=== PATIENT | female | born 1985 | race Caucasian/White ===

== ENCOUNTER → 2016-07-30 23:20 | Observation (INO) ==
[2016-07-30 21:57] VITALS: BP 152/67
[2016-07-30 22:27] LABS: Basophils % 0.1 %; Eosinophils # 0.1 K/mcL (0.0-0.6); Eosinophils % 1.1 %; Hematocrit 38.5 % (35.3-44.9); Hemoglobin 13.1 g/dL (11.5-15.4); Immature Granulocytes % 0.5 % (0-4); Lymphocytes # 2.2 K/mcL (0.6-4.6); Lymphocytes % 23.6 %; Mean Corpuscular Hemoglobin 32.2 pg (28.0-33.3); Mean Corpuscular Volume 94.6 fL (83.0-100.0); Mean Platelet Volume 9.9 fL (9.4-12.4); Monocytes # 0.7 K/mcL (0.0-1.3); Monocytes % 7.9 %; Neutrophils # 6.1 K/mcL (1.6-8.9); Platelet Count 250 K/mcL (140-400); Red Blood Count 4.07 M/mcL (3.82-4.97); Red Cell Distribution Width 13.4 % (11.5-14.5); Segmented Neutrophils % 66.8 %
[2016-07-30 22:29] LABS: Bilirubin,Urine Negative (Negative); Blood,Urine Negative (Negative); Clarity,Urine Cloudy (Clear); Color,Urine Yellow (Yellow); Glucose,Urine (UA) Normal (Normal); Ketones,Urine Negative (Negative); Leukocyte Esterase,Urine Small (Negative); Nitrite,Urine Negative (Negative); Protein,Urine Negative (Neg-Trace); Specific Gravity,Urine 1.019 (1.010-1.025); Urobilinogen,Urine Normal (Normal)
[2016-07-30 22:31] LABS: Bacteria,Urine Moderate per hpf (None-Few); Hyaline Casts,Urine None Seen per lpf (None-Few); RBC,Urine 0-3 per hpf (0-3); Squamous Epithelial Cell,Urine Many per lpf (None-Few)
[2016-07-30 22:39] LABS: Sperm,Urine Present
[2016-07-30 22:42] LABS: Alanine Aminotransferase 12 Units/L (0-55); Aspartate Amino Transferase 15 Units/L (5-34); BUN/Creatinine Ratio 11 (6-26); Blood Urea Nitrogen 7 mg/dL (7-20); Lactate Dehydrogenase 153 Units/L (159-327); Uric Acid 4.1 mg/dL (2.6-6.0); eGFR For African Americans > 60 (> 60); eGFR For Non-African Americans > 60 (> 60)
--- NOTE | 2016-07-30 23:11 | OB/GYN Progress Note ---
Date of Encounter: 07/30/16 Time of Encounter: 23:09 - Assessment and Plan (1) 35 weeks gestation of Current Visit: Yes Status: Acute (2) Swelling Current Visit: Yes Status: Acute Pt with normal BPs and PIH labs. Her GLEZ and MET have resolved. Subjective - Subjective Principal diagnosis: swelling Interval history: Pt presents with 2 day h/o swelling and earlier had mid epigastric tender. Sporadaic headache. +GFM, no vb or LOF Objective - Vital Signs Vital Signs: Vital Signs Temp Pulse Resp BP 07/30/16 21:39 97.9 F 89 14 152/67 Intake and Output 07/30/16 07/30/16 07/30/16 07:59 15:59 23:59 Output Total 50 / 50 Balance -50 / -50 Output: Urine 50 / 50 Other: Weight 139.2 kg Patient Weight 07/30/16 23:59 Weight 139.2 kg - Exam FHR: category 1 Auscultation: bilateral: normal Abdomen: Present: normal appearance Uterus: Present: normal - Labs Labs: Abnormal lab results Lactate Dehydrogenase 153 Units/L (159-327) L 07/30/16 22:19 Urine Clarity Cloudy (Clear) A 07/30/16 22:00 Ur Leukocyte Esterase Small (Negative) H 07/30/16 22:00 Urine Microscopic WBC 5-15 per hpf (0-3) H 07/30/16 22:00 Ur Squamous Epith Cells Many per lpf (None-Few) H 07/30/16 22:00 Urine Bacteria Moderate per hpf (None-Few) H 07/30/16 22:00 Ur Culture Indicated? YES (NO) A 07/30/16 22:00
== END | disposition home or self-care (01) ==
LOC: 1NENULAB
PROVIDERS: ADMIT Obstetrics & Gynecology; ATTEND Obstetrics & Gynecology

== ENCOUNTER 2016-08-26 12:47 | Inpatient (IN) ==
[~2016-08-26 12:47] MED LIST: *HR* FentaNYL (PF) 100 MCG/2 ML VIAL IVP PRN; *HR* Nalbuphine 20 MG/ML AMPUL IVP PRN; Famotidine 20 MG/2 ML VIAL IVP PRN; Naloxone 0.4 MG/ML INJ IVP PRN; Ondansetron 4 MG/2 ML VIAL IVP PRN; miSOPROStol 100 MCG TABLET PO ONE
[2016-08-26 13:04] LABS: Basophils % 0.2 %; Eosinophils # 0.1 K/mcL (0.0-0.6); Eosinophils % 0.6 %; Hematocrit 39.5 % (35.3-44.9); Hemoglobin 13.6 g/dL (11.5-15.4); Immature Granulocytes % 0.6 % (0-4); Lymphocytes # 2.2 K/mcL (0.6-4.6); Lymphocytes % 19.7 %; Mean Corpuscular HGB Conc 34.4 g/dL (31.6-35.5); Mean Corpuscular Hemoglobin 32.1 pg (28.0-33.3); Mean Corpuscular Volume 93.2 fL (83.0-100.0); Mean Platelet Volume 10.3 fL (9.4-12.4); Monocytes # 0.8 K/mcL (0.0-1.3); Monocytes % 7.1 %; Neutrophils # 7.9 K/mcL (1.6-8.9); Platelet Count 261 K/mcL (140-400); Red Blood Count 4.24 M/mcL (3.82-4.97); Segmented Neutrophils % 71.8 %
[2016-08-26] MEDS: Ringers Solution, Lactated 1,000 ML IVC SCH ×3 (14:27→17:42)
[2016-08-26] MEDS ORDERED: *HR* FentaNYL (PF) 100 MCG/2 ML VIAL EP ONE (14:39)
[2016-08-26] MEDS ORDERED: Bupivacaine-MPF 0.25% 10 ML VIAL EP ONE (14:39)
[2016-08-26] MEDS ORDERED: Epidural Premix (fent/bupiv) 110 ML EP SCH (14:45)
--- NOTE | 2016-08-26 14:49 | Anesthesia Evaluation PreOp ---
Date of Encounter: 08/26/16 Time of Encounter: 14:35 - Past History Planned Operation: labor epidural Cardiac History: Denies any Significant Hx Pulmonary History: Denies Any Significant HX, Former smoker (quit 3 months ago, smoked for several years.) BOG WORKER History: Denies Any Significant HX Other Medical History: Other (morbid obesity, BMI 50.) Anesthesia History: No Prior Anesthetic Complications, Past Anesthesia (wisdom teeth extracted.) : Yes Alcohol Use: none Drug use: none Medications and Allergies No Known Home Drugs 07/30/16 [History] Allergies No Known Allergies Allergy (Verified 08/26/16 13:09) - Meds/Allergy Pre-op Review Medications Reviewed: Yes Allergies Reviewed: No Beta Blockers on Current Med List: No Anesthesia Results - Labs 08/26/16 12:35 Anesthesia Exam VSS Height: 5'7" Weight: 144 kg NPO (# of Hours): >8 Pain Scale: 7 Pain Scale Used: Numeric (1 - 10) - HEENT Pupil (Motor): Pupils equal, EOMI Mallampati: II Teeth: Poor dentition (upper gumline decay.) Oral Opening: Greater than 3 - BOG WORKER LOC: Oriented BOG WORKER Motor: Normal RUE, Normal LUE, Normal RLE, Normal LLE, Normal Face BOG WORKER Sensory: Normal: RUE, LUE, RLE, LLE, Face - Cardiac Rhythm: Regular - Pulmonary Breath Sounds: bilateral Clear Respiratory Effort: Symmetrical Anesthesia Assess/Plan ASA Score: 3 Modified Grace Scale for Level of Consciousness: Cooperative, oriented, and tranquil Anesthetic Plan: Regional Monitoring Plan: Standard Monitors
[2016-08-26] MEDS ORDERED: *HR* FentaNYL (PF) 100 MCG/2 ML VIAL ONE (15:04)
[2016-08-26] MEDS ORDERED: Epidural Premix (fent/bupiv) 110 ML EP ONE ×2 (15:04→22:15)
[2016-08-26] MEDS ORDERED: Bupivacaine-MPF 0.25% 10 ML VIAL ONE (15:05)
--- NOTE | 2016-08-26 16:04 | Anesthesia Procedures ---
Date of Encounter: 08/26/16 Time of Encounter: 15:13 Procedures: Anesthesia - Epidural/Spinal Patient ID/Chart reviewed: Yes Patient examined: Yes OB Eval: Gestational age: 39 OB Eval: : 4 OB Eval: Hx Para: 2 OB Eval: Dilated at (cm): 5 OB Eval: Contractions: Non-stressed pattern Consent Obtained: Yes Supplemental Oxygen: None/Room Air Site Prep: Aseptic Technique, Sterile prep and drape, Povidone-Iodine 1% Patient position: upright Local Anesthetic: Lidocaine 1% Amount of Local Anesthetic used: 5 Touhy Needle Gauge: 19 Touhy Needle Depth (cm): 6 Catheter Depth at Skin (cm): 19 Test Dose (1.5% Lido + Epi): Volume given (mls): 3 Test Dose Result: Negative Loading Dose: 0.25% Marcaine (mls): 8 Loading Dose: Fentanyl (mcg): 100 Loading Dose Administered: Thru Catheter Infusion Med: 0.125% Bupivacaine w/ 2 mcg/ml Fentanyl Infusion Rate (mls/hr): [address]: Tegaderm, Tape Interspace Used: L2-L3 Loss of Resistance (TRINITY): Yes Blood: No CSF: No Paresthesia: No Vitals + FHT's: 3 Vital Signs Time 1515 1545 1550 1555 1600 BP 138/65 117/68 122/71 135/56 106/53 Pulse 106 97 111 109 111 FHTs 130 130 130 130 130
[2016-08-26] MEDS ORDERED: EPHEDrine 50 MG/ML VIAL ONE (16:11)
[2016-08-26] MEDS ORDERED: Water for inj. (sterile) 10 ML IV ONE (16:11)
--- NOTE | 2016-08-26 16:33 | OB/GYN History & Physical ---
Date of Encounter: 08/26/16 Time of Encounter: 16:21 Assessment and Plan (1) 39 weeks gestation of Current visit: Yes Status: Acute (2) SROM (spontaneous rupture of membranes) Current visit: Yes Status: Acute Admit to labor and delivery Epidural as desired Anticipate History of Present Illness Chief complaint: leaking of fluid HPI: Ms. Mcfadden is a 31 year old female 39+2 here with complaints of SROM. Pt reports good movement. Denies vaginal bleeding or leaking of fluid. 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 Past Med Surg Social Fam HX - Past Medical History Medical history: kidney stones Psychiatric history: depression - Past Surgical History Surgical History: non-contributory, other - Social History Smoking Status: Former smoker Smokeless Tobacco Status: No Alcohol use: none Drug use: none - Family History Father Adopted: No Living Status: Still Living Hx Family Cardiac Disorders: Yes (htn) Hx Family Respiratory Disorders: No Hx Family Cancer: No Hx Family GI Disorders: No Hx Family Endocrine Disorder: No Hx Family Neuromuscular Disorders: No Hx Family Neurologic Disorders: No Hx Family HEENT Disorders: No Hx Family Autoimmune Disorders: No Obstetrical History - Pregnancies : 4 Para: 2 Term: 2 : 0 Ab's: 1 Livin Medications and Allergies No Known Home Drugs 07/30/16 [History] Allergies No Known Allergies Allergy (Verified 08/26/16 13:09) Exam - Constitutional Constitutional: well developed, well nourished, no acute distress, obese - Lungs Respiratory exam: CTAB - Cardiovascular Cardiovascular exam: RRR, +S1, +S2 - Abdomen Abdomen: Present: bowel sounds normal, gravid, non tender - Vulva Vulva: bilateral: normal - Vagina Vagina: Present: normal moisture - Cervix Dilation: 5 Effacement: 80 Station: -2 - Uterus Uterus exam: Present: normal size, normal contour - Anus/Rectum Anus/Rectum: Present: normal perianal skin Results Result Diagrams: 08/26/16 12:35 All other labs normal. - VTE Reasons for not Prescribing Prophylaxis: Treatment not Indicated - Low risk for VTE
[2016-08-26] MEDS ORDERED: Oxytocin 20 units/ LR 1000 mL 20 UNIT/1,000 ML BAG IVC SCH ×2 (17:00→23:45)
--- NOTE | 2016-08-26 19:51 | OB Labor Progress Note ---
Date of Encounter: 08/26/16 Time of Encounter: 19:16 Labor Progress Note - Subjective Subjective: patient doing well - Vital Signs Vital Signs: VSS - Cervix Cervix: ant lip - Heart Tones Heart Tones: 145/mod steven/+accels, non reccurent steven decels - Plan Plan: anticipate
[2016-08-26] MEDS ORDERED: Ibuprofen 600 MG TABLET PO PRN (23:38)
[2016-08-26] MEDS ORDERED: Measles/Mumps/Rubella Vacc 0.5 ML VIAL SQ PRN (23:38)
--- NOTE | 2016-08-26 23:38 | OB/GYN Procedure Note ---
Delivery - Delivery Date: 08/26/16 Provider: Patience Pascual Intrapartum events: none Delivery induction: none Delivery augmentation: rupture of membranes Delivery monitor: external FHT Anesthesia: none Estimated Blood Loss: 250 - Repair Episiotomy: none Laceration Description: Perineal - 1st Degree - Complications Delivery complications: none - Disposition Mom disposition: stable in LDR [place] disposition: stable in LDR - Comments Comments: 31 y/o @ 39+2 weeks delivered a viable male @ 2227hrs. Infant weighed 4060g, 8lbs 15oz, APGARs 9/10. Placenta was delivered @ 2234hrs. 3VC, cord clamped and infant handed to nurse. 1st degree laceration repaired with 3- 0 vicryl. EBL 250cc. Mother and doing well.
[2016-08-27] MEDS: Acetaminophen 325 MG TABLET PO PRN ×2 (06:51→16:22)
[2016-08-27 07:25] LABS: Basophils % 0.1 %; Eosinophils # 0.1 K/mcL (0.0-0.6); Eosinophils % 0.4 %; Hematocrit 36.8 % (35.3-44.9); Hemoglobin 12.7 g/dL (11.5-15.4); Immature Granulocytes % 0.4 % (0-4); Lymphocytes # 2.2 K/mcL (0.6-4.6); Lymphocytes % 17.9 %; Mean Corpuscular HGB Conc 34.5 g/dL (31.6-35.5); Mean Corpuscular Hemoglobin 32.6 pg (28.0-33.3); Mean Corpuscular Volume 94.6 fL (83.0-100.0); Mean Platelet Volume 10.8 fL (9.4-12.4); Monocytes % 7.8 %; Platelet Count 246 K/mcL (140-400); Red Blood Count 3.89 M/mcL (3.82-4.97); Red Cell Distribution Width 13.1 % (11.5-14.5); Segmented Neutrophils % 73.4 %
[2016-08-27] MEDS: Prenatal Vit/FA 1 EACH TABLET PO SCH (08:41)
--- NOTE | 2016-08-27 09:44 | OB/GYN Progress Note ---
Date of Encounter: 08/27/16 Time of Encounter: 09:42 - Assessment and Plan (1) Status post vaginal delivery Current Visit: Yes Status: Acute Patient meeting milestones. Anticipate discharge on 08/28. Continue routine care Subjective - Subjective Principal diagnosis: PPD1 Interval history: The patient is status post a vaginal delivery. Her is doing well. She is reporting some back soreness and is starting to ambulate. Patient reports: appetite normal, voiding normally, pain well controlled, ambulating normally [place]rey: doing well, nursing well Objective - Latest Vital Signs Latest vital signs: Vital Signs Temp Pulse Resp BP Pulse Ox 08/27/16 07:45 97.9 F 92 18 112/70 97 08/27/16 03:30 99.6 F 96 20 124/84 98 08/27/16 02:15 98.5 F 88 16 124/78 98 08/27/16 01:15 98.5 F 99 20 116/80 98 Intake and Output 08/26/16 08/27/16 08/27/16 23:59 07:59 15:59 Intake Total 1000 / 1000 900 / 900 Output Total 2000 / 2000 Balance 1000 / 1000 -1100 / -1100 Intake: IV Fluids 1000 / 1000 Lactated Ringers 1,000 ML 1000 / 1000 @ 125 mls/hr IVC .Q8H [facility] Rx#:[id number] Oral 600 / 600 Other 300 / 300 Output: Urine 2000 / 2000 Other: Weight 141 kg Patient Weight 08/27/16 23:59 Weight 141 kg - Exam Lungs: bilateral: normal Extremities: Present: edema. Absent: tenderness Abdomen: Present: soft. Absent: distention, tenderness Uterus: Present: normal, firm Uterus Position: 1 Finger Below Umbilicus, Midline - Labs Labs: Laboratory Results - last 24 hr 08/26/16 08/27/16 12:35 06:40 WBC 11.1 12.2 H RBC 4.24 3.89 Hgb 13.6 12.7 Hct 39.5 36.8 MCV 93.2 94.6 MCH 32.1 32.6 MCHC 34.4 34.5 RDW 13.0 13.1 Plt Count 261 246 MPV 10.3 10.8 Immature Gran % 0.6 0.4 Seg Neutrophils % 71.8 73.4 Lymphocytes % 19.7 17.9 Monocytes % 7.1 7.8 Eosinophils % 0.6 0.4 Basophils % 0.2 0.1 Neutrophils # 7.9 9.0 H Lymphocytes # 2.2 2.2 Monocytes # 0.8 1.0 Eosinophils # 0.1 0.1 Basophils # 0.0 0.0 - Allied health notes Allied health notes reviewed: nursing
[2016-08-28] MEDS: Acetaminophen 325 MG TABLET PO PRN (06:15)
[2016-08-28 08:02] VITALS: BP 106/69
--- NOTE | 2016-08-28 08:07 | Discharge Summary ---
Date of Encounter: 08/28/16 Time of Encounter: 08:03 - Discharge Diagnosis (1) Breast feeding status of mother Priority: Secondary Status: Acute Comments: continue support prn (2) Status post vaginal delivery Priority: Primary Status: Acute Comments: Continue routine routine care discharge home today - Discharge Medications Prescriptions: Breast Pump [BREAST PUMP] 1 each .ROUTE AD #1 each Home Medications: Breast Pump [BREAST PUMP] 1 each .ROUTE AD #1 each 08/28/16 [Rx] Allergies/Adverse Reactions: Allergies No Known Allergies Allergy (Verified 08/26/16 13:09) Data Procedures and tests throughout hospitalization: Laboratory Tests 08/26/16 08/27/16 12:35 06:40 WBC 11.1 12.2 H RBC 4.24 3.89 Hgb 13.6 12.7 Hct 39.5 36.8 MCV 93.2 94.6 MCH 32.1 32.6 MCHC 34.4 34.5 RDW 13.0 13.1 Plt Count 261 246 MPV 10.3 10.8 Immature Gran % 0.6 0.4 Seg Neutrophils % 71.8 73.4 Lymphocytes % 19.7 17.9 Monocytes % 7.1 7.8 Eosinophils % 0.6 0.4 Basophils % 0.2 0.1 Neutrophils # 7.9 9.0 H Lymphocytes # 2.2 2.2 Monocytes # 0.8 1.0 Eosinophils # 0.1 0.1 Basophils # 0.0 0.0 Date of admission: 08/26/16 12:47 Consults: 08/26/16 23:39 Consult to [employer]inner [CONS] Routine Comment: Vaginal delivery, consult needed Discharging clinician: Kellen Haley Anticipated date of discharge: 08/28/16 - Patient Status Disposition: Home, Self-Care Condition: Good Functional capacity at discharge: independent ambulation Overall status at discharge: patient is back to baseline - Discharge Instructions Follow Up With: Patience Pascual MD [Partnered Physician] - - Diet and Activity Activity: increase activity as tolerated Diet: regular diet Hospital Course Delivery: Episiotomy: none Other procedures: none complications: none Discharge diagnosis: IUP at term delivered baby: male (breast feeding) Time Attestation: Total time spent providing and/or coordinating discharge services: Time Spent: Less than 30 minutes Exam - Constitutional Vitals: Temp Pulse Resp BP Pulse Ox 97.6 F 86 12 106/69 97 08/28/16 07:45 08/28/16 07:45 08/28/16 07:45 08/28/16 07:45 08/28/16 07:45 General appearance IM: A&O X 3, pleasant, obese, answers questions appropriately - Respiratory Respiratory exam: Present: CTAB - Cardiovascular Cardiovascular exam IM: Present: RRR, +S1, +S2 - GI/Abdominal GI/Abdominal exam IM: normal bowel sounds - Uterine Tone: Firm Uterus Position: 1 Finger Below Umbilicus, Midline - Extremities Exam Extremities exam IM: Present: full ROM, normal capillary refill, normal inspection - Neurological Exam Neurological exam: alert, oriented X3, reflexes normal
[2016-08-28] MEDS: Prenatal Vit/FA 1 EACH TABLET PO SCH (11:43)
== END 2016-08-28 13:39 | disposition home or self-care (01) | DRG 560 ==
LOC: 1NENULAB → 1NENUOBS 08-27 00:44
PROVIDERS: ADMIT Student in an Organized Health Care Education/Training Program; ATTEND Student in an Organized Health Care Education/Training Program

== ENCOUNTER 2019-06-10 13:27 | Observation (INO) ==
[2019-06-10 12:03] LABS: Bilirubin,Urine Negative (Negative); Blood,Urine Negative (Negative); Clarity,Urine Cloudy (Clear); Color,Urine Yellow (Yellow); Glucose,Urine (UA) Normal (Normal); Ketones,Urine 15 mg/dL (Negative); Leukocyte Esterase,Urine Negative (Negative); Nitrite,Urine Negative (Negative); PH,Urine 6.5 pH Units (5.0-8.0); Protein,Urine Negative (Neg-Trace); Specific Gravity,Urine 1.018 (1.010-1.025); Urobilinogen,Urine Normal (Normal)
[2019-06-10 12:05] LABS: Hyaline Casts,Urine None Seen per lpf (None-Few); RBC,Urine 0-3 per hpf (0-3)
[2019-06-10 12:06] LABS: Basophils % 0.1 %; Eosinophils # 0.1 K/mcL (0.0-0.6); Eosinophils % 0.9 %; Hematocrit 40.2 % (35.3-44.9); Hemoglobin 13.5 g/dL (11.5-15.4); Immature Granulocytes % 0.5 % (0-4); Lymphocytes # 1.8 K/mcL (0.6-4.6); Mean Corpuscular HGB Conc 33.6 g/dL (31.6-35.5); Mean Corpuscular Hemoglobin 31.3 pg (28.0-33.3); Mean Corpuscular Volume 93.1 fL (83.0-100.0); Mean Platelet Volume 9.8 fL (9.4-12.4); Monocytes # 0.6 K/mcL (0.0-1.3); Monocytes % 7.4 %; Neutrophils # 5.6 K/mcL (1.6-8.9); Platelet Count 278 K/mcL (140-400); Red Blood Count 4.32 M/mcL (3.82-4.97); Segmented Neutrophils % 69.1 %; White Blood Count 8.1 K/mcL (4.3-11.1)
[2019-06-10 12:15] LABS: Squamous Epithelial Cell,Urine Moderate per lpf (None-Few)
[2019-06-10 12:16] LABS: Bacteria,Urine Many per hpf (None-Few)
[2019-06-10 12:18] LABS: Protein/Creatinine Ratio,Urine 0.3 mg/mg (0.00-0.20)
[2019-06-10 12:30] LABS: Alanine Aminotransferase 13 Units/L (7-52); Aspartate Amino Transferase 13 Units/L (13-39); BUN/Creatinine Ratio 18 (6-26); Blood Urea Nitrogen 7 mg/dL (6-20); Lactate Dehydrogenase 130 Units/L (140-271); Uric Acid 4.4 mg/dL (2.3-7.6); eGFR For African Americans > 60 (> 60); eGFR For Non-African Americans > 60 (> 60)
== END 2019-06-10 17:05 | disposition home health service (06) ==
LOC: 1NENULAB
PROVIDERS: ADMIT Obstetrics & Gynecology; ATTEND Obstetrics & Gynecology

== ENCOUNTER 2019-07-07 23:11 | Inpatient (IN) ==
[2019-07-07 20:55] LABS: Basophils % 0.1 %; Eosinophils # 0.2 K/mcL (0.0-0.6); Eosinophils % 2.1 %; Hematocrit 42.4 % (35.3-44.9); Hemoglobin 14.2 g/dL (11.5-15.4); Immature Granulocytes % 0.6 % (0-4); Lymphocytes # 2.1 K/mcL (0.6-4.6); Lymphocytes % 21.2 %; Mean Corpuscular HGB Conc 33.5 g/dL (31.6-35.5); Mean Corpuscular Hemoglobin 30.7 pg (28.0-33.3); Mean Corpuscular Volume 91.6 fL (83.0-100.0); Mean Platelet Volume 10.3 fL (9.4-12.4); Monocytes # 0.7 K/mcL (0.0-1.3); Monocytes % 7.2 %; Neutrophils # 6.7 K/mcL (1.6-8.9); Platelet Count 303 K/mcL (140-400); Red Blood Count 4.63 M/mcL (3.82-4.97); Red Cell Distribution Width 12.6 % (11.5-14.5); Segmented Neutrophils % 68.8 %; White Blood Count 9.7 K/mcL (4.3-11.1)
[2019-07-07 21:03] LABS: Amphetamine Screen,Urine Negative ng/mL (Cutoff=1000); Barbiturate Screen,Urine Negative ng/mL (Cutoff=200); Benzodiazepines Screen,Urine Negative ng/mL (Cutoff=200); Cannabinoid Screen,Urine Negative ng/mL (Cutoff = 50); Cocaine Screen,Urine Negative ng/mL (Cutoff= 300); Opiate Screen,Urine Negative ng/mL (Cutoff=300); Phencyclidine Screen,Urine Negative ng/mL (Cutoff=25)
[~2019-07-07 23:11] MED LIST changes: -*HR* Nalbuphine 20 MG/ML AMPUL IVP PRN; +Azithromycin 500 MG in 0.9 % Sodium Chloride 250 ML IVPB ONE; +EPHEDrine 50 MG/ML VIAL IVP PRN; +Epidural Premix (fent/bupiv) 110 ML EP ONE; +Epidural Premix (fent/bupiv) 110 ML EP SCH; +Lidocaine -MPF 1% 2 ML VIAL ONE; +Lidocaine 1% 20 ML MDV INFILT PRN; +Metoclopramide 10 MG/2 ML VIAL IVP PRN; +Ringers Solution, Lactated 1,000 ML IVC SCH; +Ringers Solution, Lactated 1,000 ML ONE; -miSOPROStol 100 MCG TABLET PO ONE
[2019-07-07] MEDS ORDERED: Oxytocin 20 units/ LR 1000 mL 20 UNIT/1,000 ML BAG IVC ONE (23:51)
[2019-07-08] MEDS ORDERED: Oxytocin 20 units/ LR 1000 mL 20 UNIT/1,000 ML BAG IVC SCH ×2 (00:15→08:14)
[2019-07-08 03:26] LABS: Protein/Creatinine Ratio,Urine 0.7 mg/mg (0.00-0.20)
[2019-07-08 03:34] LABS: Alanine Aminotransferase 22 Units/L (7-52); Aspartate Amino Transferase 18 Units/L (13-39); BUN/Creatinine Ratio 22 (6-26); Blood Urea Nitrogen 11 mg/dL (6-20); Lactate Dehydrogenase 183 Units/L (140-271); Uric Acid 4.7 mg/dL (2.3-7.6); eGFR For African Americans > 60 (> 60); eGFR For Non-African Americans > 60 (> 60)
[2019-07-08] MEDS ORDERED: Lanolin 7 G OINT...G. TP PRN (08:14)
[2019-07-08] MEDS ORDERED: Benzocaine/Menthol 56 GM AEROSOL SPRAY TP PRN (08:14)
[2019-07-08] MEDS ORDERED: Acetaminophen 325 MG TABLET PO PRN (08:14)
[2019-07-08] MEDS: Prenatal Vit/FA 1 EACH TABLET PO SCH (09:09)
[2019-07-08] MEDS: Ibuprofen 600 MG TABLET PO PRN (09:09)
[2019-07-08] MEDS: Aspirin Enteric Coated 81 MG Tablet PO SCH (09:10)
[2019-07-09] MEDS: Ibuprofen 600 MG TABLET PO PRN (04:23)
[2019-07-09 06:08] LABS: Basophils % 0.2 %; Eosinophils # 0.3 K/mcL (0.0-0.6); Eosinophils % 3.2 %; Hematocrit 36.8 % (35.3-44.9); Immature Granulocytes % 0.6 % (0-4); Lymphocytes # 2.8 K/mcL (0.6-4.6); Lymphocytes % 32.9 %; Mean Corpuscular HGB Conc 32.9 g/dL (31.6-35.5); Mean Corpuscular Hemoglobin 30.8 pg (28.0-33.3); Mean Corpuscular Volume 93.6 fL (83.0-100.0); Mean Platelet Volume 10.3 fL (9.4-12.4); Monocytes # 0.6 K/mcL (0.0-1.3); Neutrophils # 4.7 K/mcL (1.6-8.9); Platelet Count 271 K/mcL (140-400); Red Blood Count 3.93 M/mcL (3.82-4.97); Red Cell Distribution Width 12.8 % (11.5-14.5); Segmented Neutrophils % 56.1 %; White Blood Count 8.4 K/mcL (4.3-11.1)
[2019-07-09 06:10] LABS: Hemoglobin 12.1 g/dL (11.5-15.4)
[2019-07-09] MEDS: Prenatal Vit/FA 1 EACH TABLET PO SCH (07:52)
[2019-07-09] MEDS: Aspirin Enteric Coated 81 MG Tablet PO SCH (07:52)
[2019-07-09 07:55] VITALS: BP 138/88
== END 2019-07-09 12:16 | disposition home or self-care (01) | DRG 560 ==
LOC: 1NENULAB → 1NENUOBS 07-08 07:58
PROVIDERS: ADMIT Obstetrics & Gynecology; ATTEND Obstetrics & Gynecology